=== PATIENT | male | born 1980 | race Caucasian/White ===

== ENCOUNTER 2016-06-28 11:47 | Emergency (ER) | payer BC ==
[2016-06-28 11:52] VITALS: BP 131/76
--- NOTE | 2016-06-28 11:55 | ER Document Report ---
ED Medical Screen (RME) - General Stated Complaint: HAND PAIN Mode of Arrival: Ambulatory Information source: Patient Notes: Patient presents to the emergency department with right hand pain after hitting a dog in the head yesterday break up a fight. I have greeted and performed a rapid initial assessment of this patient. A comprehensive ED assessment and evaluation of the patient, analysis of test results and completion of the medical decision making process will be conducted by additional ED providers. TRAVEL OUTSIDE OF THE [place] IN LAST 30 DAYS: No - Related Data Allergies/Adverse Reactions: No Known Drug Allergies Allergy (Verified 01/06/16 18:25) Past Medical History Neurological Medical History: Reports: Hx Migraine Musculoskeltal Medical History: Reports Hx Arthritis, Reports Hx Musculoskeletal Deformity, Reports Hx Musculoskeletal Trauma Traumatic Medical History: Reports: Hx Fractures - Finger and arm - Immunizations Immunizations up to date: Yes Hx Diphtheria, Pertussis, Tetanus Vaccination: No Physical Exam - Vital signs Vitals: Temp Pulse Resp BP Pulse Ox 98.1 F 106 H 14 131/76 H 95 06/28/16 11:51 06/28/16 11:51 06/28/16 11:51 06/28/16 11:51 06/28/16 11:51 Course - Vital Signs Vital signs: Temp Pulse Resp BP Pulse Ox 98.1 F 106 H 14 131/76 H 95 06/28/16 11:51 06/28/16 11:51 06/28/16 11:51 06/28/16 11:51 06/28/16 11:51
--- NOTE | 2016-06-28 12:57 | ER Document Report ---
HPI - HPI Patient complains to provider of: injured right hand punching a dog to protect his own dog Onset: This morning Onset/Duration: Sudden Pain Level: 4 Context: 35-year-old male punched a dog that was attacking his own little dog. He states he thinks his fourth metacarpal is broken, to someone that he pointed to. No previous injury or fracture. Associated Symptoms: None Exacerbated by: Movement Relieved by: Denies Similar symptoms previously: No Recently seen / treated by doctor: No - ROS ROS below otherwise negative: Yes Systems Reviewed and Negative: Yes All other systems reviewed and negative - REPRODUCTIVE Reproductive: DENIES: : - DERM Skin Color: Normal Past Medical History - General Information source: Patient - Social History Smoking Status: Current Every Day Smoker Chew tobacco use (# tins/day): Yes Frequency of alcohol use: None Drug Abuse: None Lives with: Spouse/Significant other Family History: Malignancy, Other - Patient states that he does not know the rest of his family history Patient has suicidal ideation: No Patient has homicidal ideation: No Neurological Medical History: Reports: Hx Migraine Renal/ Medical History: Denies: Hx Peritoneal Dialysis Musculoskeltal Medical History: Reports Hx Arthritis, Reports Hx Musculoskeletal Deformity, Reports Hx Musculoskeletal Trauma Traumatic Medical History: Reports: Hx Fractures - Finger and arm Surgical Hx: Negative - Immunizations Immunizations up to date: Yes Hx Diphtheria, Pertussis, Tetanus Vaccination: No Vertical Provider Document - CONSTITUTIONAL Agree With Documented VS: Yes Exam Limitations: No Limitations - INFECTION CONTROL TRAVEL OUTSIDE OF THE [place] IN LAST 30 DAYS: No - HEENT HEENT: Normocephalic - NECK Neck: Supple - RESPIRATORY O2 Sat by Pulse Oximetry: 95 - MUSCULOSKELETAL/EXTREMETIES Musculoskeletal/Extremeties: MAEW, FROM, Tender - Fourth metacarpal, Edema - Dorsal right hand Notes: No rotational deviation - NEURO Level of Consciousness: Awake, Alert Motor/Sensory: No Motor Deficit, No Sensory Deficit - DERM Integumentary: Warm, Dry, No Rash Course - Vital Signs Vital signs: Temp Pulse Resp BP Pulse Ox 98.1 F 106 H 14 131/76 H 95 06/28/16 11:51 06/28/16 11:51 06/28/16 11:51 06/28/16 11:51 06/28/16 11:51 Procedures - Immobilization Right Hand Time completed: 13:15 Pre-Proc Neuro Vasc Exam: Normal Immobilizer type: Ulnar Performed by: PCT Post-Proc Neuro Vasc Exam: Normal Alignment checked and good: Yes Discharge - Discharge Clinical Impression: 4th rt non displaced distal MC fx Condition: Good Disposition: HOME, SELF-CARE Instructions: Fractured Metacarpal ([facility]), Temporary Splint ([facility]), Splint Precautions ([facility]), Sling to be Used ([facility]), Oral Narcotic Medication ([facility]) Additional Instructions: Call tomorrow for orthopedic appointment this week Keep the splint on Sling for comfort Return to the emergency room for any concerns Please complete the patient satisfaction survey if you get one, and return it.. If you do not receive a survey, then you can go to the [facility] website, [email or web address] and place your comments about your very good care. Thank you very much. It was a pleasure being your medical provider today. Prescriptions: Ibuprofen [Motrin 800 mg Tablet] 800 mg PO Q8HP PRN #30 tablet PRN Reason: Oxycodone HCl/Acetaminophen [Percocet 5-325 mg Tablet] 1 - 2 tab PO ASDIR PRN # 15 tablet PRN Reason: Forms: Return to Work Referrals: BRITTANY STEWART DO [ACTIVE STAFF] - Follow up tomorrow (call for appt. this week)
== END 2016-06-28 14:02 | disposition home or self-care (01) ==
LOC: ER 11:47
PROC: 2W3CX1Z Immobilization of Right Lower Arm using Splint (ICD-10-PCS; principal; 2016-06-28)
DX: S62.304A Unspecified fracture of fourth metacarpal bone, right hand, initial encounter for closed fracture (principal); W22.8XXA Striking against or struck by other objects, initial encounter; Y93.K9 Activity, other involving animal care; F17.200 Nicotine dependence, unspecified, uncomplicated
CPT/HCPCS: 99283

== ENCOUNTER → 2019-12-05 | Outpatient (CLI) | payer BC ==
[2019-12-05 10:18] LABS: SPERM MORPHOLOGY SENT TO REFERENC LAB
[2019-12-05 11:42] LABS: SPERM CONCENTRATION 179.7 X10^6/mL (>12.0); TOTAL SPERM COUNT 323.5 X10^6 (>33.0)
[2019-12-05 11:43] LABS: SPERM PROGRESSION 4
== END ==
LOC: LAB 09:58
PROVIDERS: ATTEND Specialist
DX: N46.9 Male infertility, unspecified (principal)
CPT/HCPCS: 89320

== ENCOUNTER 2020-01-07 21:02 | Emergency (ER) | payer BC ==
[2020-01-07 21:11] VITALS: BP 154/79
[2020-01-07] MEDS ORDERED: CEPHALEXIN 500 MG CAPSULE PO ONE (22:02)
[2020-01-07] MEDS ORDERED: PREDNISONE 20 MG TABLET PO ONE (22:02)
--- NOTE | 2020-01-07 22:08 | ER Document Report ---
HPI - HPI Patient complains to provider of: Insect bite Time Seen by Provider: 01/07/20 21:55 Context: 39-year-old male no previous medical problems presents emergency room complaining of swelling to the right posterior neck that he just noticed tonight. Thinks he may have been bitten by something. States his tried to squeeze it and got a little bit of pus out of it. He denies any fevers. No nausea, no vomiting, states it does not itch or hurt. Tetanus is up-to-date. Associated Symptoms: None Exacerbated by: Other - Touching it Relieved by: Remaining still Similar symptoms previously: No Recently seen / treated by doctor: No - ROS Systems Reviewed and Negative: Yes All other systems reviewed and negative - CONSTITUTIONAL Constitutional: DENIES: Fever - EENT EENT: DENIES: Sore Throat, Ear Pain - NEURO Neurology: DENIES: Headache, Weakness - CARDIOVASCULAR Cardiovascular: DENIES: Chest pain - REPRODUCTIVE Reproductive: DENIES: : - MUSCULOSKELETAL Musculoskeletal: REPORTS: Neck Pain, Swelling - Right posterior neck. DENIES: Extremity pain - DERM Skin Color: Erythema Past Medical History - General Information source: Patient - Social History Smoking Status: Current Every Day Smoker Frequency of alcohol use: Occasional Drug Abuse: None Family History: Malignancy, Other - Patient states that he does not know the rest of his family history Neurological Medical History: Reports: Hx Migraine Renal/ Medical History: Denies: Hx Peritoneal Dialysis Musculoskeletal Medical History: Reports Hx Arthritis, Reports Hx Musculoskeletal Deformity, Reports Hx Musculoskeletal Trauma Traumatic Medical History: Reports: Hx Fractures - Finger and arm - Immunizations Immunizations up to date: Yes Hx Diphtheria, Pertussis, Tetanus Vaccination: No Vertical Provider Document - CONSTITUTIONAL Agree With Documented VS: Yes Exam Limitations: No Limitations General Appearance: Mild Distress - INFECTION CONTROL TRAVEL OUTSIDE OF THE [place] IN LAST 30 DAYS: No - HEENT HEENT: Atraumatic, Normal ENT Exam, Normocephalic. negative: Pharyngeal Exudate, Pharyngeal Tenderness, Pharyngeal Erythema, Tympanic Membrane Red, Tympanic Membrane Bulging - NECK Neck: Lymphadenopathy-Right - 3 cm erythematous raised right posterior cervical lymph node. It is nontender to palpation. It is warm to touch. There is no active discharge or draining noted. - RESPIRATORY Respiratory: Breath Sounds Normal, No Respiratory Distress - CARDIOVASCULAR Cardiovascular: Regular Rate, Regular Rhythm, No Murmur - BACK Back: Normal Inspection - MUSCULOSKELETAL/EXTREMETIES Musculoskeletal/Extremeties: FROM - NEURO Level of Consciousness: Awake, Alert, Appropriate Motor/Sensory: No Motor Deficit, No Sensory Deficit - DERM Integumentary: Warm, Dry, No Rash Notes: 3 cm erythematous raised right posterior cervical lymph node. It is nontender to palpation. It is warm to touch. There is no active discharge or draining noted. Course - Re-evaluation Re-evalutation: 01/07/20 22:04 Reviewed diagnosis with patient and family. Counseled on ice 20 minutes 3 times a day. Antibiotics and prednisone as prescribed. Follow-up with primary care physician if not improving in 2 to 3 days. Patient was given strict return to the emergency room guidelines. Return for any new or worsening symptoms. All questions were answered. Patient verbalized understanding and agrees with plan of care. - Vital Signs Vital signs: Temp Pulse Resp BP Pulse Ox 98.5 F 100 16 154/79 H 97 01/07/20 21:09 01/07/20 21:09 01/07/20 21:09 01/07/20 21:09 01/07/20 21:09 Discharge - Discharge Clinical Impression: Cellulitis of neck, Lymphadenopathy, posterior cervical Allergic reaction Qualifiers: Encounter type: initial encounter Qualified Code(s): T78.40XA - Allergy, unspecified, initial encounter Condition: Stable Disposition: HOME, SELF-CARE Instructions: Acute Allergic Reaction ([facility]), Cellulitis ([facility]), Cervical Lymphadenitis ([facility]) Additional Instructions: Take medications as prescribed ice 20 minutes 3 times a day. Recheck with primary care physician 2 days. Return to the emergency room for any new or worsening symptoms. Prescriptions: Prednisone [Deltasone 20 mg Tablet] See Protocol PO DAILY 9 Days #15 tablet Cephalexin Monohydrate [Keflex 500 mg Capsule] 500 mg PO QID 40 Days #40 capsule Referrals: CHICA NUNES MD [EMER[facility]] - Follow up in 3-5 days
== END 2020-01-07 22:10 | disposition home or self-care (01) ==
LOC: ER 21:02
DX: L03.221 Cellulitis of neck (principal); R59.0 Localized enlarged lymph nodes; T78.40XA Allergy, unspecified, initial encounter; X58.XXXA Exposure to other specified factors, initial encounter; F17.200 Nicotine dependence, unspecified, uncomplicated
CPT/HCPCS: 99283; J7512